=== PATIENT | male | born 1980 | race Caucasian/White ===

== ENCOUNTER 2018-09-29 08:55 | Outpatient (CLI) | payer OTHER | END 2018-09-29 08:56 | disposition home or self-care (01) | LOC: SC 08:55 | PROVIDERS: ATTEND Internal Medicine Pulmonary Disease | DX: G47.33 Obstructive sleep apnea (adult) (pediatric) (principal); I25.2 Old myocardial infarction; Z87.891 Personal history of nicotine dependence | CPT/HCPCS: 99203; 99212 ==

== ENCOUNTER 2018-10-26 20:27 | Outpatient (CLI) | payer OTHER | END 2018-10-26 20:28 | disposition home or self-care (01) | LOC: SC 20:27 | PROVIDERS: ATTEND Internal Medicine Pulmonary Disease | DX: G47.33 Obstructive sleep apnea (adult) (pediatric) (principal) | CPT/HCPCS: 95811 ==

== ENCOUNTER 2018-11-02 09:34 | Outpatient (CLI) | payer OTHER | END 2018-11-02 09:35 | disposition home or self-care (01) | LOC: SC 09:34 | PROVIDERS: ATTEND Internal Medicine Pulmonary Disease | DX: G47.33 Obstructive sleep apnea (adult) (pediatric) (principal) | CPT/HCPCS: 99212; 99213 ==

== ENCOUNTER 2019-04-06 13:03 | Outpatient (CLI) | payer OTHER ==
--- NOTE | 2019-04-06 13:27 | SLEEP CARE CONSULTATION ---
Information from patient questionnaire entered by Lillian Cantrell. I have reviewed and concur with the information entered by Lillian Cantrell. This document represents the service I personally performed and the decisions made by me, Rafael Staton MD, [facility]. History of Present Illness Previous diagnosis: Severe, Obstructive Sleep Apnea-Hypopnea Syndrome AHI: 78.3 Reason for follow up: first compliance Equipment type: CPAP Equipment obtained from: [employer] Mask style: Nasal Prior sleep studies: Yes HPI additional information: HPI: Mr. Henao returned today for follow up of nasal CPAP therapy. He was diagnosed to have very severe obstructive sleep apnea-hypopnea syndrome. The patient uses nasal pillows. He reports using the device nightly and all through the night. The compliance report shows usage in 30 nights out of the past 30 nights, averaging 5.7 hours a night. He complained of no particular problem with the device such as soreness on the face, dry nose, epistaxis, nasal congestion or headache. He thinks that the pressure of 8 12 cmH2O is comfortable. On the CPAP therapy he notices improvement in his sleep quality, and that he wakes up feeling fresher in the morning and more awake/alert during the day. His notices no snore at all. The average residual AHI is 2.7; and average time in large leak per day is 16 seconds. The 90th percentile pressure is 11.9 cmH2O. CPAP Compliance Data - Data Reviewed with Patient Average duration of nightly device use: 5h 45m Compliance rate %: 90 Current pressure setting (cmH2O): 8-12 Humidity settin Heated hose settin Average residual AHI: 2.7 Average large leak: 16s Subjective Current pressure setting perceived as: comfortable Initial [place] Sleepiness Scale score: 16 Current [place]ious Sleepiness Scale score: 8 Allergies and Home Medications Drug allergies reviewed: Yes Home medication list reviewed: Yes Review of Systems Review of systems same as previous: Yes Physical Exam Weight: 192 lb Impression and Plan IMPRESSION: 1. Obstructive Sleep Apnea-Hypopnea Syndrome, very severe, with the patient doing well on nasal CPAP therapy. He has excellent compliance and significant clinical improvement. The current pressure appears effective and comfortable. Overall, he is very satisfied with treatment and plans to continue with it long- term. No adjustment is necessary today. The patient requests switching from [employer] to another durable medical supplier. PLAN: 1. Continue with autoCPAP set 9 - 12 cmH2O. 2. Try to lose weight 3. Try other masks and nasal pillows. 4. Prescription made for supplies. 5. Return in one year for follow up or earlier if there is any problem with the treatment. I spent 100% of this 20 minute visit face to face with the patient with greater than 50% of this was spent time counseling the patient and coordination of care.
== END 2019-04-06 13:04 | disposition home or self-care (01) ==
LOC: SC 13:03
PROVIDERS: ATTEND Internal Medicine Pulmonary Disease
DX: G47.33 Obstructive sleep apnea (adult) (pediatric) (principal)
CPT/HCPCS: 99212; 99213

== ENCOUNTER 2021-02-05 09:07 | Outpatient (CLI) | payer OTHER ==
--- NOTE | 2021-02-05 09:37 | SLEEP CARE CONSULTATION ---
Information from patient questionnaire entered by Micaela Mcdermott. I have reviewed and concur with the information entered by Micaela Mcdermott. This document represents the service I personally performed and the decisions made by me, Rafael Staton MD, [facility]. History of Present Illness Service Date and Time: 02/05/2021 0907 Previous diagnosis: Severe, Obstructive Sleep Apnea-Hypopnea Syndrome AHI: 78.3 (in 2018) Reason for follow up: annual (last seen 03/2019) Equipment type: CPAP Equipment obtained from: [employer] Mask style: Nasal Mask brand: Resmed [facility]: [facility] Type of Sleep Study: Polysomnography (Split-night) HPI additional information: Mr. Henao returned today for follow up of nasal CPAP therapy. He was diagnosed to have very severe obstructive sleep apnea-hypopnea syndrome. The patient uses nasal pillows. He has not used his Respironics DreamStation CPAP for several months now because of cough and it being recalled. The compliance report from November shows usage in 25 nights out of the past 30 nights, averaging 6.5 hours a night. He complained of no particular problem with the device such as soreness on the face, dry nose, epistaxis, nasal congestion or headache. He thinks that the pressure of 8 12 cmH2O is comfortable. On the CPAP therapy he noticed improvement in his sleep quality, and that he wakes up feeling fresher in the morning and more awake/alert during the day. His notices no snore at all. The average residual AHI is 3.2; and average time in large leak per day is 24 seconds. The 90th percentile pressure is 11.6 cmH2O. CPAP Compliance Data - Data Reviewed with Patient Average duration of nightly device use: 6 hr 32 min Compliance rate %: 13.3 Current pressure setting (cmH2O): 8-12 Humidity settin Heated hose settin Average residual AHI: 3.2 Average large leak: 24 sec Subjective Missed days of use due to: reports: mask issues, illness Patient concerns: reports: mask discomfort Initial [place] Sleepiness Scale score: 16 (in 2019) Current [place] Sleepiness Scale score: 15 Allergies and Home Medications Drug allergies reviewed: Yes Home medication list reviewed: Yes Review of Systems Review of systems same as previous: Yes Physical Exam Height: 5 ft 8 in Weight: 192 lb Body Mass Index: 29.2 BMI Classification: Overweight Impression and Plan 1. Obstructive Sleep Apnea-Hypopnea Syndrome, very severe, with the patient not using his Respironics DreamStation device due to upper respiratory symptoms. This is reasonable. Because his device is also older than 5 years, I will order him a new one through a durable medical supplier of his choice (he was with [facility] but did not like it). PLAN: 1. Prescription made for an autoCPAP, heated humidifier, and related supplies. 2. Try to lose weight 3. Try other masks and nasal pillows. 4. Return for follow up after one month of using the CPAP. Counseling Topics: Weight loss health impact Prescriptions: Auto CPAP Follow up with Sleep Care in: 1-2 months Visit Type: In Office Time Spent with Patient (minutes): 15 Provider Statement: I spent 100% of the Face to Face Visit with the patient with greater than 50% spent counseling the patient and coordination of care.
== END 2021-02-05 09:08 | disposition home or self-care (01) ==
LOC: SC 09:07
PROVIDERS: ATTEND Internal Medicine Pulmonary Disease
DX: G47.33 Obstructive sleep apnea (adult) (pediatric) (principal); E66.3 Overweight; Z68.29 Body mass index [BMI] 29.0-29.9, adult
CPT/HCPCS: 99212

== ENCOUNTER 2021-05-14 08:59 | Outpatient (CLI) | payer OTHER ==
[2021-05-14 09:42] VITALS: BP 135/96
--- NOTE | 2021-05-14 09:42 | SLEEP CARE CONSULTATION ---
Information from patient questionnaire entered by Ronnell Houser MA. I have reviewed and concur with the information entered by Ronnell Houser MA. This document represents the service I personally performed and the decisions made by me, Rafael Staton MD, [facility]. History of Present Illness Service Date and Time: 05/14/2021 0859 Previous diagnosis: Severe, Obstructive Sleep Apnea-Hypopnea Syndrome AHI: 78.3 (in 2018) Reason for follow up: first compliance (FIRST COMPLIANCE AFTER SET UP 1031, [employer]) Equipment type: CPAP Equipment obtained from: [employer] Mask style: Nasal [facility]: Yes [facility] Type of Sleep Study: Polysomnography (Split-night) HPI additional information: Mr. Henao returned today for follow up of nasal CPAP therapy. He was diagnosed to have very severe obstructive sleep apnea-hypopnea syndrome. The patient uses nasal pillows. He recently acquired a new ResMed AirSense 11 from [employer] The compliance report shows usage in 30 nights out of the past 30 nights, averaging 7.2 hours a night. He complained of no particular problem with the device such as soreness on the face, dry nose, epistaxis, nasal congestion or headache. He thinks that the pressure of 8 12 cmH2O is comfortable. On the CPAP therapy he noticed improvement in his sleep quality, and that he wakes up feeling fresher in the morning and more awake/alert during the day. His Anderson Sleepiness Scale score is 13. His notices no snore at all. The average residual AHI is 1.5 (was 3.2); and average time in large leak per day is 0 (was 24 seconds). The 90th percentile pressure is 11.8 cmH2O. Sleep Study - Results Type of Sleep Study: Polysomnography (Split-night) Prior sleep studies: Yes [facility] CPAP Compliance Data - Data Reviewed with Patient Average duration of nightly device use: 7 hours 12 days Compliance rate %: 100 Current pressure setting (cmH2O): 8-12 Average residual AHI: 1.5 Central apnea: .1 Obstructive apnea: .9 Subjective Initial Anderson Sleepiness Scale score: 16 (in 2018) Current Anderson Sleepiness Scale score: 13 (2020) Allergies and Home Medications Known drug allergies: Yes (Penicillin) Drug allergies reviewed: Yes Home medication list reviewed: Yes (new med - Plavex) Review of Systems Review of systems same as previous: Yes Physical Exam Vital signs obtained and entered by: ROBERTO GAINES Blood Pressure: 135/96 (right) Cuff size: wrist Heart Rate: 76 O2 Saturation: 98 (with mask) Height: 5 ft 8 in Weight: 199 lb (uniform boots) Body Mass Index: 30.2 BMI Classification: Obese Impression and Plan IMPRESSION: 1. Obstructive Sleep Apnea-Hypopnea Syndrome, very severe, with the patient using his new autoCPAP regularly. The current pressure setting appears effective and comfortable. No adjustment is necessary today. PLAN: 1. Continue with autoCPAP set at 8 - 12 cmH2O. 2. Try to lose weight 3. Try other masks and nasal pillows. 4. Return for follow up in a year or earlier if there is any problem. The patient planning to relocate to [place] after his care home from the [place] in October. Follow up with Sleep Care in: 1 year Follow up recommended for: Weight management Visit Type: In Office Time Spent with Patient (minutes): 12 Provider Statement: I spent 100% of the Face to Face Visit with the patient with greater than 50% spent counseling the patient and coordination of care.
== END 2021-05-14 09:00 | disposition home or self-care (01) ==
LOC: SC 08:59
PROVIDERS: ATTEND Internal Medicine Pulmonary Disease
DX: G47.33 Obstructive sleep apnea (adult) (pediatric) (principal); E66.9 Obesity, unspecified; Z68.30 Body mass index [BMI] 30.0-30.9, adult
CPT/HCPCS: 99212